=== PATIENT | female | born 1980 | race Two or more races ===

== ENCOUNTER → 2024-06-24 | Outpatient (CLI) | payer MEDICAID, SELFPAY ==
--- NOTE | 2024-06-24 09:30 | XR_ITS ---
Examination: CT abdomen with intravenous contrast CT pelvis with intravenous contrast 2-D coronal reconstructions 2-D sagittal reconstructions Date and time of exam:June 24, 2024 1038 hours Comparison April 22, 2018 INDICATIONS:. History hydronephrosis CTDI: vol (mGy) 11.8 DLP: (mGycm) 669 Technique: Multiple axial sections of the abdomen and pelvis have been obtained. 64 slice high-resolution scanner used. 3 mm axial sections have been obtained, post intravenous injection 60 cc [id number] 2-D sagittal, coronal reconstructions obtained. Low dose protocols were performed. One or more of the following dose reduction techniques were used; automated exposure control, adjustment of the mA and/or KV according to patient size, use of iterative reconstruction technique. Findings: No focal liver or splenic lesions Absent gallbladder No pancreatic or adrenal mass Moderate bilateral renal parenchymal scar formation Minimal dilatation right renal calyces and proximal right ureter with wall thickening, consider urinary tract infection No renal or ureteral calculi Normal appendix No bowel obstruction No diverticulitis Anteverted uterus No bladder mass or bladder calculi The osseous structures are intact IMPRESSION: Minimal dilatation right renal calyces and proximal right ureter, consider urinary tract infection No renal or ureteral calculi
== END | disposition home or self-care (01) ==
LOC: SCAT 09:04
PROVIDERS: PCP Family Medicine; Referring Provider Family Medicine; Visit Provider Family Medicine
DX: S29.8XXD Other specified injuries of thorax, subsequent encounter (principal); N13.30 Unspecified hydronephrosis
CPT/HCPCS: 74177; A4649; Q9967